=== PATIENT | female | born 1950 | race African-American/Black ===

== ENCOUNTER → 2016-07-16 | Outpatient (CLI) | payer OTHER ==
[~2016-07-16] MED LIST: ALBUTEROL17 GM INH; ALDACTONE; ALDACTONE25 MG PO; APRESOLINE10 M1; ASPIRIN81 M2 PO; CIPRO PO; CLARITIN10 M2 PO; COREG; FLAGYL PO; FUROSEMIDE40 MG PO; ISORDIL10 MG; LASIX; LEVAQUIN PO; LEVEMIR SQ; LISINOPRIL; NOVOLOG100 U/M1 SQ; PHENERGAN PO; SIMVASTATIN40 MG; TESSALON200 MG PO; VICODIN 5/1 TAB 5/50 PO; ZANTAC PO; ZOFRANODT PO
--- NOTE | ~2016-07-16 | MY9 ---
[facility] A Service of [facility] & [facility] RADIOLOGY TEXT RESULTS PATIENT: MARINO RIGGS LOCATION: [facility] : 50 UNIT #: [id number] AGE: [address]: ABDIRASHID LOWRY MD SEX: F ORDER DR: [id number] [facility] [address] [place], [place] [address] [id number] O MR#: [id number] Acc #: [id number] NAME: MARINO RIGGS. : 1950 SEX: F STUDY DATE/TIME: 07/16/2016 13:51 UNIT: [facility] ROOM: STUDY DESCRIPTION: MY Mammogram Screen Uni Dig Lt Attending Physician: Abdirashid Lowry M.D. Referring Physician: Abdirashid Lowry M.D. Ordering Physician: Abdirashid Lowry M.D. Primary Care Physician: Abdirashid Lowry M.D. MEDICAL IMAGING REPORT This report is preliminary unless electronic signature is present EXAM Unilateral left digital screening mammogram 07/16/2016, [facility] HISTORY A 66-year-old woman status post right mastectomy age 45. Adjuvant therapy. Annual screening. COMPARISON STUDIES Comparison mammograms date to 05/02/2010 with most recent 05/17/2010. FINDINGS Digital imaging of the left breast was completed with 3 recorded. Screening views. An additional exaggerated craniocaudal view is provided. Review includes FDA-approved CAD device. Breast parenchyma is partially fatty replaced. 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 Several small nodules are also present anterior third subareolar location. These are also mildly progressive compared with our study in 2010. There is an image-guided biopsy marker located central subareolar location indicating prior sampling of one of these nodules. I expect the findings are benign though somewhat progressive. With this in mind, 6-month recall imaging is recommended. I see no interval occurring microcalcifications and no architectural deformity. IMPRESSION Status post right mastectomy. Probable benign left mammogram. Recommend 6-month recall imaging to confirm stability. BIRADS III Patients over the age of 40 are entered into a reminder system with target due date for the next mammogram. A result letter will also be sent to the patient. [facility] A Service of [facility] RADIOLOGY TEXT RESULTS PATIENT: MARINO RIGGS LOCATION: [facility] : 50 UNIT #: [id number] AGE: [address]: ABDIRASHID LOWRY MD SEX: F ORDER DR: BIRADS: 3 Probably benign finding; short interval followup suggested. Dictated by... Giuseppe Perez M.D. THIS IS AN ELECTRONICALLY VERIFIED REPORT Giuseppe Perez M.D. at 07/17/2016 12:57 PM [place] TD: 07/17/2016 11:35 JOB #: [id number] MEDICAL IMAGING REPORT Page 1 of 1 COPY
== END | disposition home or self-care (01) ==
LOC: CWCC 13:28
DX: Z12.31 Encounter for screening mammogram for malignant neoplasm of breast (principal); Z85.3 Personal history of malignant neoplasm of breast; Z90.11 Acquired absence of right breast and nipple; Z98.890 Other specified postprocedural states
CPT/HCPCS: G0202